=== PATIENT | male | born 1955 | race African-American/Black ===

== ENCOUNTER 2019-11-30 11:55 | Emergency (ER) | payer OTHER ==
[~2019-11-30] VITALS: Ht 177.8 cm; Wt 125.0 kg
[2019-11-30] MEDS ORDERED: advil (12:08)
[2019-11-30] MEDS ORDERED: IBUPROFEN 600MG TABLET PO ONE (13:30)
[2019-11-30 14:12] VITALS: BP 126/82
== END 2019-11-30 14:11 | disposition home or self-care (01) ==
LOC: ER 13:12
DX: K02.9 Dental caries, unspecified (principal); K05.10 Chronic gingivitis, plaque induced
CPT/HCPCS: 99282